=== PATIENT | male | born 1995 | race Caucasian/White ===

== ENCOUNTER 2017-06-24 17:05 | Emergency (ER) | payer BC, OTHER ==
[~2017-06-24] VITALS: Ht 162.6 cm; Wt 88.8 kg
[~2017-06-24 17:05] MED LIST: CETITAB27 PO; DIPH25TA24 PO; FEXO1TAB49 PO
[2017-06-24 17:21] VITALS: TEMP 38.4; Ht 162.6 cm; Wt 88.8 kg
[2017-06-24] MEDS ORDERED: FAMOTIDINE 20MG/5ML IV PUSH IV STA (17:27)
[2017-06-24] MEDS ORDERED: DiphenhydrAMINE HCL 50 MG/ML VIAL IV STA ×2 (17:27→19:08)
[2017-06-24] MEDS ORDERED: METHYLPREDNISOLONE 125 MG VIAL IV STA (17:27)
[2017-06-24] MEDS ORDERED: FEXO1TAB49 PO (18:25)
[2017-06-24] MEDS ORDERED: RANI150T85 PO (18:25)
[2017-06-24] MEDS ORDERED: DIPH25CA65 PO (18:32)
--- NOTE | 2017-06-24 18:41 | EMERGENCY ROOM VISIT NOTE ---
History Report prepared by Andrew: Contreras Traore Under the Supervision of: Dr. Eric Mitchell D.O. First contact with patient: 17:21 Chief Complaint: ALLERGIC REACTION Stated Complaint: SEVERE HIVES OUTBREAK History of Present Illness The patient is a 22 year old male who presents to the Emergency Room with complaints of worsening hives over the past 3 days. The patient notes that his current hives are severe. He states that he has chronic hives, but the hives have been worsening. He says that the hives are worst on the left arm, but he has hives all over currently. He says that his left arm virk, and he can hardly feel his fingers on the left hand. He says that he sees 4 allergists, and they are not sure why the patient has chronic hives. The patient notes that his hives started 2 years ago. He states that he takes 3 antihistamines, which usually maintain his hives. The patient says that he has never had any breathing problems with his hives. Source of History: patient Onset: Over past 3 days Position: other (global) Symptom Intensity: severe Quality: other (hives) Timing: worsening Associated Symptoms: + numbness (to fingers left hand), No SOB Note: Associated symptoms: Left arm burning. Review of Systems See HPI for pertinent positives & negatives. A total of 10 systems reviewed and were otherwise negative. Past Medical & Surgical Medical Problems: (1) H/O allergic reaction Family History FH: lung cancer Social History Smoking Status: Never Smoker Alcohol Use: none Drug Use: none Marital Status: single Housing Status: lives with roommate Occupation Status: [employer] student Current/Historical Medications Scheduled Fexofenadine Hcl (Adia Allergy), 180 MG PO DAILY Ranitidine (Zantac), 150 MG PO BID Scheduled PRN Diphenhydramine Hcl (Benadryl Allergy), 25 MG PO UD PRN for Allergic Reaction Allergies Coded Allergies: Ibuprofen (Verified Allergy, Unknown, Swelling of lips/mouth, 06/24/17) Physical Exam Vital Signs Date Time Temp Pulse Resp B/P (MAP) Pulse Ox O2 Delivery O2 Flow Rate FiO2 06/24/17 18:44 70 18 120/84 99 Room Air 06/24/17 18:12 86 16 129/103 100 Room Air 06/24/17 17:30 99 Room Air 06/24/17 17:21 38.4 112 20 136/85 96 Room Air Physical Exam CONSTITUTIONAL/VITAL SIGNS: Reviewed / noted above. GENERAL: Non-toxic in appearance. INTEGUMENTARY: Diffuse hives. HEAD: Normocephalic. EYES: without scleral icterus or trauma. ENT/OROPHARYNX: clear and moist. LYMPHADENOPATHY/NECK: Is supple without lymphadenopathy or meningismus. RESPIRATORY: Lungs clear and equal. CARDIOVASCULAR: Regular rate and rhythm. GI/ABDOMEN: Soft and nontender. No organomegaly or pulsatile mass. No rebound or guarding. Normal bowel sounds. EXTREMITIES: Warm and well perfused. BACK: No CVA tenderness. NEUROLOGICAL: Intact without focal deficits. PSYCHIATRIC: normal affect. MUSCULOSKELETAL: Normally developed with good muscle tone. Medical Decision & Procedures Medications Administered Medications (Trade) Dose Ordered Sig/Rubio Route Start Time Stop Time Status Last Admin Dose Admin Methylprednisolone Sodium Succinate (Solu-Medrol IV) 125 mg NOW STAT IV 06/24/17 17:27 06/24/17 17:29 DC 06/24/17 18:01 125 MG Diphenhydramine HCl (Benadryl Inj) 25 mg NOW STAT IV 06/24/17 17:27 06/24/17 17:29 DC 06/24/17 18:01 25 MG Famotidine (Pepcid 20mg Iv Push) 20 mg ONE STAT IV 06/24/17 17:27 06/24/17 17:29 DC 06/24/17 18:01 20 MG ED Course 1722: Previous medical records were reviewed. The patient was evaluated in room A11B. A complete history and physical examination was performed. 1727: Pepcid 20mg IV Push, Benadryl Inj 25 mg IV, Solu-Medrol IV 125 mg. 1843: On reevaluation, the patient is resting comfortably. I discussed the results and findings with the patient. He verbalized agreement of the treatment plan. He will be discharged home. 1912: I reevaluated the patient and his symptoms have improved. Medical Decision Differential diagnosis: Etiologies such as allergic reaction, anaphylaxis, urticaria, Fontenot-Tyrese syndrome, toxic epidermal necrolysis, erythema multiforme, cellulitis, as well as others were entertained. This is a 22-year-old male who presents to the ED with a chief complaint of allergic reaction. The patient has a history of chronic hives. He states that he is seeing 4 informatics specialist for this and he has had this for a couple of years. He states that they are unable to figure out why it occurs. The patient is on 3 different types of medication for this as an outpatient. He states occasionally his symptoms get worse and he comes to the hospital for IV Benadryl and steroids. The patient states that the itching and burning became worse today. He denies any breathing issues. He does have diffuse hives on his body on exam. He was treated with IV Decadron, IV Benadryl and IV Pepcid. His symptoms did improve with this and he was felt to be stable for discharge . Medication Reconcilliation Current Medication List: was personally reviewed by me Blood Pressure Screening Patient's blood pressure: Elevated blood pressure Blood pressure disposition: Elevated BP felt to be situational Impression Primary Impression: Allergic reaction Scribe Attestation The scribe's documentation has been prepared under my direction and personally reviewed by me in its entirety. I confirm that the note above accurately reflects all work, treatment, procedures, and medical decision making performed by me. Departure Information Dispostion Home / Self-Care Referrals Fly Alcocer M.D. (PCP) Patient Instructions My [facility] Additional Instructions Follow-up with your doctor for further care and evaluation in 1-2 weeks. Return to the emergency department for worsening or new symptoms or any concerns. You have been examined and treated today on an emergency basis only. This is not a substitute for, or an effort to provide, complete comprehensive medical care. It is impossible to recognize and treat all injuries or illnesses in a single emergency department visit. It is therefore important that you follow up closely with your doctor. Call as soon as possible for an appointment.
[2017-06-24 19:48] VITALS: BP 124/68; PULSE 81; O2SAT 99
== END 2017-06-24 19:50 | disposition home or self-care (01) ==
LOC: C.EDB 17:07 → C.EDA 19:50
DX: T78.40XA Allergy, unspecified, initial encounter (principal); X58.XXXA Exposure to other specified factors, initial encounter; Z88.8 Allergy status to other drugs, medicaments and biological substances

== ENCOUNTER 2017-07-01 16:34 | Emergency (ER) | payer BC ==
[~2017-07-01] VITALS: Ht 162.6 cm; Wt 86.0 kg
[~2017-07-01 16:34] MED LIST changes: -CETITAB27 PO; +DIPH25CA65 PO; -DIPH25TA24 PO; +RANI150T85 PO
[2017-07-01 16:42] VITALS: TEMP 36.9; Ht 162.6 cm; Wt 86.0 kg
[2017-07-01] MEDS ORDERED: SODIUM CHLORIDE 0.9% 1000ML 1,000 ML IV STA (18:06)
--- NOTE | 2017-07-01 18:35 | DIAGNOSTIC IMAGING REPORT ---
HEAD WITHOUT CONTRAST (CT) CLINICAL HISTORY: 22 years-old Male presenting with Evaluate for hemorrhage or pathology, headache, clinical concern for meningitis. TECHNIQUE: Multidetector CT imaging of the head was performed without the use of intravenous contrast. IV contrast: None. A dose lowering technique was used consistent with the principles of ALARA (as low as reasonably achievable). COMPARISON: None. CT DOSE (mGy.cm): The estimated cumulative dose is 537.48 mGy.cm. FINDINGS: Membership Advisor topogram: Unremarkable. Ventricles and sulci normal in size. Brain parenchyma normal in appearance with preserved villatoro-white differentiation. No mass effect or midline shift. No hemorrhage or acute territorial infarct. No extra-axial fluid collection. Paranasal sinuses and mastoid air cells clear. Calvarium intact. IMPRESSION: 1. No acute intracranial abnormality. Electronically signed by: Dennis Remy M.D. 07/01/2017 6:34 PM Dictated Date/Time: 07/01/2017 6:32 PM
[2017-07-01 19:15] LABS: BASO % 0.1 %; BASO ABS # 0.01 K/uL (0-0.2); EOS ABS # 0.07 K/uL (0-0.5); HEMATOCRIT 45.3 % (42-52); HEMOGLOBIN 15.6 g/dL (14.0-18.0); IG# 0.03 K/uL (0.00-0.02); LYMPH % 31.1 %; LYMPH ABS # 2.14 K/uL (1.2-3.4); MEAN CELL VOLUME 83.3 fL (80-100); MEAN CORPUSCULAR HEMOGLOBIN 28.7 pg (25-34); MEAN CORPUSCULAR HGB CONC 34.4 g/dl (32-36); MEAN PLATELET VOLUME 9.5 fL (7.4-10.4); MONO % 10.5 %; MONO ABS # 0.72 K/uL (0.11-0.59); NEUT % 56.9 %; PLATELET COUNT 360 K/uL (130-400); RED CELL DISTRIBUTION WIDTH CV 12.7 % (11.5-14.5); RED CELL DISTRIBUTION WIDTH SD 37.8 fL (36.4-46.3); WHITE BLOOD COUNT 6.87 K/uL (4.8-10.8)
[2017-07-01 19:21] LABS: CALCIUM 9.3 mg/dl (8.5-10.1); CREATININE 1.06 mg/dl (0.60-1.40); POTASSIUM 4.1 mmol/L (3.5-5.1)
[2017-07-01 20:27] VITALS: BP 91/74; PULSE 65; O2SAT 98
[2017-07-01] MEDS ORDERED: BUTALBITAL/ACETAMIN/CAFFEINE TAB PO STA (20:44)
[2017-07-01] MEDS ORDERED: PHENERGAN 25MG HOMEPACK PO ONE (20:45)
[2017-07-01] MEDS ORDERED: PROM25TA9 PO (21:03)
[2017-07-01] MEDS ORDERED: FRCT/ PO (21:03)
--- NOTE | 2017-07-02 02:05 | EMERGENCY ROOM VISIT NOTE ---
History Report prepared by Andrew: Kevin Reyna Under the Supervision of: Dr. Jay Byrne M.D. First contact with patient: 18:04 Chief Complaint: HEADACHE Stated Complaint: HEADACHE, POSSIBLE MENINGITIS- REFERRED History of Present Illness The patient is a 22 year old male who presents to the Emergency Room with complaints of a persistent headache beginning 1.5 weeks ago. He rates his discomfort as a 3/10 in severity. He reports his symptoms are worsened with loud noises. The patient states his headache developed first about 1.5 to 2 weeks ago. He reports a couple of days after the onset, he became ill with symptoms including a cough. The patient states on June 24, he then developed an allergic reaction and hives. He reports he came to the ED and was discharged home after treatment. The patient states his headache still persisted after his visit to the ED. He reports he took Tylenol for his pain without any relief of symptoms. The patient states he has not been able to focus and has been forgetful due to his constant headache. He notes he has also been nauseous with motion recently. The patient states he went to Dr. Alcocer's office due to his symptoms and was prescribed antibiotics. He reports his illness and cough were slightly alleviated following his visit, which caused him to not take his antibiotics. The patient states his headache still persisted and the PA who saw him at Dr. Alcocer's office was concerned and referred him to the ER for further evaluation. The patient denies LOC, fevers, chills, diaphoresis, visual changes , neck pain, chest pain, breathing difficulties, vomiting, abdominal pain, back pain, melena, hematochezia, urinary symptoms, numbness, weakness, lymphadenopathy, rash, or other complaints. . Source of History: patient Onset: 1.5 weeks ago Position: head Symptom Intensity: 3/10 Quality: ache Timing: other (persistent) Modifying Factors (Relieving): tylenol Associated Symptoms: + cough, + nausea Review of Systems See HPI for pertinent positives and negatives. A total of ten systems were reviewed and were otherwise negative. Past Medical & Surgical Medical Problems: (1) H/O allergic reaction Family History Diabetes mellitus FH: lung cancer Social History Smoking Status: Never Smoker Alcohol Use: none Drug Use: none Marital Status: single Housing Status: lives with roommate Occupation Status: [employer] student Current/Historical Medications Scheduled Fexofenadine Hcl (Adia Allergy), 180 MG PO DAILY Ranitidine (Zantac), 150 MG PO BID Scheduled PRN Acetamin/Butalbital/Caffeine (Fioricet), 1 TAB PO Q6 PRN for Pain Diphenhydramine Hcl (Benadryl Allergy), 25 MG PO UD PRN for Allergic Reaction Promethazine Hcl (Phenergan), 25 MG PO Q6H PRN for Nausea Allergies Coded Allergies: Ibuprofen (Verified Allergy, Unknown, Swelling of lips/mouth, 07/01/17) Physical Exam Vital Signs Date Time Temp Pulse Resp B/P (MAP) Pulse Ox O2 Delivery O2 Flow Rate FiO2 07/01/17 20:27 65 16 91/74 98 07/01/17 19:01 60 18 124/79 100 Room Air 07/01/17 16:42 36.9 85 18 125/82 100 Room Air Physical Exam GENERAL: Awake, alert, well appearing, no distress HENT: Normocephalic, atraumatic. TM's normal. Oropharynx unremarkable. EYES: PERRL. EOMI. Normal conjunctiva. Sclera non-icteric. NECK: Supple. No nuchal rigidity. FROM. No bruit. RESPIRATORY: Breath sounds equal. No wheezes. No rhonchi. Normal respiratory effort. CARDIAC: Normal rate. Regular rhythm. No murmurs. No rubs. No JVD. GI: Soft, non distended. No tenderness to palpation. No rebound or guarding. No masses. RECTAL: Deferred. MUSCULOSKELETAL: Unremarkable. No edema. No discoloration. Gross motor strength symmetric. NEURO: Cranial nerves 2-12 grossly intact. Normal sensorium. No sensory or motor deficits noted. Speech normal. No pronator drift. Negative jolt accentuation test. SKIN: No rash or jaundice noted. LYMPH: No adenopathy. Medical Decision & Procedures ER Provider Diagnostic Interpretation: Radiology results as stated below per my review and radiologist interpretation: HEAD WITHOUT CONTRAST (CT) CLINICAL HISTORY: 22 years-old Male presenting with Evaluate for hemorrhage or pathology, headache, clinical concern for meningitis. TECHNIQUE: Multidetector CT imaging of the head was performed without the use of intravenous contrast. IV contrast: None. A dose lowering technique was used consistent with the principles of ALARA (as low as reasonably achievable). COMPARISON: None. CT DOSE (mGy.cm): The estimated cumulative dose is 537.48 mGy.cm. 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 Ventricles and sulci normal in size. Brain parenchyma normal in appearance with preserved villatoro-white differentiation. No mass effect or midline shift. No hemorrhage or acute territorial infarct. No extra-axial fluid collection. Paranasal sinuses and mastoid air cells clear. Calvarium intact. IMPRESSION: 1. No acute intracranial abnormality. Electronically signed by: Dennis Remy M.D. 07/01/2017 6:34 PM Dictated Date/Time: 07/01/2017 6:32 PM Laboratory Results 07/01/17 18:45 Red Blood Count 5.44, Mean Corpuscular Volume 83.3, Mean Corpuscular Hemoglobin 28.7, Mean Corpuscular Hemoglobin Concent 34.4, Mean Platelet Volume 9.5, Neutrophils (%) (Auto) 56.9, Lymphocytes (%) (Auto) 31.1, Monocytes (%) (Auto) 10.5, Eosinophils (%) (Auto) 1.0, Basophils (%) (Auto) 0.1, Neutrophils # (Auto ) 3.90, Lymphocytes # (Auto) 2.14, Monocytes # (Auto) 0.72, Eosinophils # (Auto ) 0.07, Basophils # (Auto) 0.01 07/01/17 18:45 Test 07/01/17 18:45 White Blood Count 6.87 K/uL (4.8-10.8) Red Blood Count 5.44 M/uL (4.7-6.1) Hemoglobin 15.6 g/dL (14.0-18.0) Hematocrit 45.3 % (42-52) Mean Corpuscular Volume 83.3 fL (80-100) Mean Corpuscular Hemoglobin 28.7 pg (25-34) Mean Corpuscular Hemoglobin Concent 34.4 g/dl (32-36) Platelet Count 360 K/uL (130-400) Mean Platelet Volume 9.5 fL (7.4-10.4) Neutrophils (%) (Auto) 56.9 % Lymphocytes (%) (Auto) 31.1 % Monocytes (%) (Auto) 10.5 % Eosinophils (%) (Auto) 1.0 % Basophils (%) (Auto) 0.1 % Neutrophils # (Auto) 3.90 K/uL (1.4-6.5) Lymphocytes # (Auto) 2.14 K/uL (1.2-3.4) Monocytes # (Auto) 0.72 K/uL (0.11-0.59) Eosinophils # (Auto) 0.07 K/uL (0-0.5) Basophils # (Auto) 0.01 K/uL (0-0.2) RDW Standard Deviation 37.8 fL (36.4-46.3) RDW Coefficient of Variation 12.7 % (11.5-14.5) Immature Granulocyte % (Auto) 0.4 % Immature Granulocyte # (Auto) 0.03 K/uL (0.00-0.02) Erythrocyte Sedimentation Rate 14 mm/hr (0-14) Anion Gap 6.0 mmol/L (3-11) Est Creatinine Clear Calc Drug Dose 109.1 ml/min Estimated GFR () 115.7 Estimated GFR (Non- 99.8 BUN/Creatinine Ratio 11.1 (10-20) Calcium Level 9.3 mg/dl (8.5-10.1) C-Reactive Protein 0.34 mg/dl (0-0.29) Lyme Disease IgM Antibody NEG (NEG) Laboratory results reviewed by me Medications Administered Medications (Trade) Dose Ordered Sig/Rubio Route Start Time Stop Time Status Last Admin Dose Admin Sodium Chloride 1,000 ml @ 999 mls/hr Q1H1M STAT IV 07/01/17 18:06 07/01/17 19:06 DC 07/01/17 19:03 999 MLS/HR Promethazine HCl (Phenergan 25MG Home Pack) 1 homepack UD ONCE PO 07/01/17 20:45 07/01/17 20:46 DC 07/01/17 21:10 1 HOMEPACK ED Course 1805: Ordered Sodium Chloride 1000 ml @ 999 mls/hr IV. 1807: The patient was evaluated in room C02B. A complete history and physical exam was performed. 1899: I reevaluated the patient and updated him on his CT results. 1950: I reevaluated the patient and he is resting comfortably. I updated him on his results. 2036: I reevaluated the patient. Discussed results and discharge instructions: He verbalized understanding and agreement. The patient is ready for discharge. 2044: Ordered Promethazine HCl 1 homepack PO. Medical Decision Prior records/ancillary studies reviewed. Triage Nursing notes reviewed and agree them. The patient's history was concerning for headache. Differential diagnosis: Etiologies such as migraine headache, meningitis, sinusitis, CO exposure, ICH, SAH, infection, tumor, headache, sinus thrombosis, arterial dissection, as well as others were entertained. Physical examination findings: As above. Non-focal. Patient had no meningeal findings. He was smiling. He is interactive. He had a nonfocal neurologic examination. Negative jolt accentuation. ER treatment provided: Normal saline hydration Patient declined analgesia On reassessment the patient felt better. Diagnostics interpreted by me: The labs revealed an unremarkable CBC and chemistry panel. Inflammatory markers were unremarkable. Lyme testing negative. Imaging studies: CT scan as above The patient is afebrile, has no white count, no meningeal findings on examination and has had almost 2 weeks of a mild headache. He does note photophobia, phonophobia, and there is a family history of migraine headache. This does not fit with meningitis. I discussed this with the patient and family and felt that a lumbar puncture was not necessary. They felt comfortable with the plan of conservative management. I discussed use of some Phenergan if he had any worsening nausea and also offered some small amount of Fioricet. He is allergic to NSAIDs. The patient will follow up with the office. I also encouraged them to discuss neurology follow-up if the headaches are persisting. If he worsens in any way he will be back to the emergency department. I gave my usual and customary discussion regarding this issue. By the evaluation outlined above other emergent etiologies such as those listed in the differential, as well as others, were deemed relatively unlikely. The patient was educated about the findings as listed above. All questions were answered and the patient was pleased with the treatment. Return instructions were outlined and the patient was discharged in stable condition. The patient was referred to his primary office for follow-up for a recheck of the current condition. Medication Reconcilliation Current Medication List: was personally reviewed by me Blood Pressure Screening Patient's blood pressure: Normal blood pressure Impression Primary Impression: Headache Scribe Attestation The scribe's documentation has been prepared under my direction and personally reviewed by me in its entirety. I confirm that the note above accurately reflects all work, treatment, procedures, and medical decision making performed by me. Departure Information Dispostion Home / Self-Care Prescriptions Promethazine Hcl (Phenergan) 25 Mg Tab 25 MG PO Q6H Y for Nausea, #6 TAB Prov: Jay Byrne MD 07/01/17 Acetamin/Butalbital/Caffeine (FIORICET) 1 Ea Tab 1 TAB PO Q6 Y for Pain, #10 TAB Prov: Jay Byrne MD 07/01/17 Referrals Fly Alcocer M.D. (PCP) Forms HOME CARE DOCUMENTATION FORM, IMPORTANT VISIT INFORMATION Patient Instructions My [facility] Additional Instructions HEADACHE INSTRUCTIONS: DO NOT drive, drink alcohol, operate machinery, or perform dangerous activities today. You were given medications in the ER that can affect your ability to safely function or operate a vehicle. Rest today in a quiet, peaceful, dark environment and get a full 8-10 hrs of sleep tonight. Avoid loud noises, smoke/smoking, alcohol, bright lights, stress, or physical exertion today to minimize the chance the headache may return. Continue current medications. For mild pain: Tylenol: Take 1000 mg every 6 hours as needed for pain. Do not take more than 3000 mg in a 24 hour period. Phenergan 25mg tabs, one every six hours for nausea. Fioricet: Take 1 pill every 6 hours as needed for moderate to severe pain. Avoid additional Acetaminophen/Tylenol, alcohol, operating machinery or dangerous equipment, working on ladders or roofs, DRIVING, or situations where being under the influence may be dangerous. Return to the ER for passing out, worsening headache, vision problems, neck stiffness/pain, fevers, vomiting, worsening of your condition, or as needed. Follow up with your primary physician in 2-3 days for a recheck of your current condition.
== END 2017-07-01 21:05 | disposition home or self-care (01) ==
LOC: C.EDB 16:36 → C.EDC 21:05
DX: R51 Headache (principal)